=== PATIENT | female | born 1990 | race Caucasian/White ===

== ENCOUNTER 2019-04-17 14:16 | Outpatient (CLI) | payer OTHER ==
[2019-04-17] MEDS ORDERED: PRENATAL TABLE1 EAC1 PO (15:00)
== END 2019-04-17 20:37 | disposition home or self-care (01) ==
LOC: OBS/DEL 14:16
DX: O60.03 Preterm labor without delivery, third trimester (principal); Z34.83 Encounter for supervision of other normal pregnancy, third trimester

== ENCOUNTER 2019-05-02 20:20 | Outpatient (CLI) | payer OTHER ==
[~2019-05-02 20:20] MED LIST: PRENATAL TABLE1 EAC1 PO
== END 2019-05-03 07:20 | disposition home or self-care (01) ==
LOC: OBS/DEL 20:20 → LDR 23:10 → OBS/DEL 23:13
DX: O60.03 Preterm labor without delivery, third trimester (principal); Z34.83 Encounter for supervision of other normal pregnancy, third trimester

== ENCOUNTER 2019-05-14 19:02 | Inpatient (IN) | payer OTHER ==
[~2019-05-14] VITALS: Ht 160 cm; Wt 97.1 kg
== END 2019-05-17 12:15 | disposition home or self-care (01) | DRG 798 ==
LOC: LDR 19:02 → OB/GYN 19:02
PROVIDERS: ADMIT Obstetrics & Gynecology
PROC: 4A1HXCZ Monitoring of Products of Conception, Cardiac Rate, External Approach (ICD-10-PCS; 2019-05-14)
PROC: 10E0XZZ Delivery of Products of Conception, External Approach (ICD-10-PCS; principal; 2019-05-15)
PROC: 0KQM0ZZ Repair Perineum Muscle, Open Approach (ICD-10-PCS; 2019-05-15)
PROC: 3E033VJ Introduction of Other Hormone into Peripheral Vein, Percutaneous Approach (ICD-10-PCS; 2019-05-15)
PROC: 0UL70ZZ Occlusion of Bilateral Fallopian Tubes, Open Approach (ICD-10-PCS; 2019-05-16)
DX: O70.1 Second degree perineal laceration during delivery (principal); Z37.0 Single live birth; Z3A.38 38 weeks gestation of pregnancy; Z30.2 Encounter for sterilization; Z22.330 Carrier of Group B streptococcus